=== PATIENT | female | born 1960 | race Caucasian/White ===

== ENCOUNTER → 2016-08-17 | Outpatient (CLI) | payer OTHER ==
[~2016-08-17] MED LIST: CARAFATE1 G PO; HYDROCODON-ACE1 EAC7 PO; OMEPRAZOLE40 M1 PO; SYNTHROID0.2 MG PO; TOPROL XL50 MG PO; VENLAFAXINE HCL75 M1 PO; ZOFRAN PO
--- NOTE | ~2016-08-17 | CT55 ---
[facility] A Service of [facility] RADIOLOGY TEXT RESULTS PATIENT: MARVA VILLATORO [facility] UNIT #: [id number] AGE: [address]: Yousuf Shafer MD SEX: F ORDER DR: [id number] [place], [place] [address] [id number] O MR#: [id number] Acc #: [id number] NAME: MARVA VILLATORO : 1960 SEX: F STUDY DATE/TIME: 08/17/2016 10:54 UNIT: [facility] ROOM: STUDY DESCRIPTION: CT Chest W Con Attending Physician: Yousuf Shafer M.D. Referring Physician: Yousuf Shafer M.D. Ordering Physician: Yousuf Shafer M.D. Primary Care Physician: Linda Muse M.D. MEDICAL IMAGING REPORT This report is preliminary unless electronic signature is present EXAM Chest CT with contrast 08/17/2016 INDICATIONS 55-year-old female with history of neoplasm. Colon cancer follow-up. Nausea, diarrhea 3 weeks. Status post chemotherapy. Cholecystectomy, colonic resection and oophorectomy. Observation for suspected malignant neoplasm. Active malignancy. TECHNIQUE Contrast enhanced CT of the chest was performed. This CT exam was performed with one or more of the following radiation dose reduction techniques: automatic exposure control, adjustment of mA and/or kV according to patient size, and iterative reconstruction. COMPARISON 09/16/[address] CHEST: Lungs are clear. No suspicious pulmonary nodule. No pleural or pericardial effusion. No axillary or mediastinal adenopathy. Included thyroid unremarkable. Aorta demonstrates no aneurysm or dissection. Included upper abdomen demonstrates surgical absence of the gallbladder. Osseous structures demonstrate no suspicious bone lesion. IMPRESSION 1. Negative contrast-enhanced CT of the chest. No findings to suggest metastatic disease. 2. Upper abdomen demonstrates no acute finding. Please see separately [facility] A Service [facility] RADIOLOGY TEXT RESULTS PATIENT: MARVA VILLATORO [facility] UNIT #: [id number] AGE: [address]: Yousuf Shafer MD SEX: F ORDER DR: dictated abdomen and pelvis CT same date for further details. Dictated by... Doc Kulkarni M.D. THIS IS AN ELECTRONICALLY VERIFIED REPORT Doc Kulkarni M.D. at 08/17/2016 5:32 PM CARLOS EDUARDO/david TD: 08/17/2016 17:10 JOB #: [id number] MEDICAL IMAGING REPORT Page 1 of 1 COPY
--- NOTE | ~2016-08-17 | CT2 ---
[facility] A Service of [facility] RADIOLOGY TEXT RESULTS PATIENT: MARVA VILLATORO LOCATION: [facility] : 60 UNIT #: [id number] AGE: [address]: Yousuf Shafer MD SEX: F ORDER DR: [id number] [facility] [address] [place], [place] [address] [id number] O MR#: [id number] Acc #: [id number] NAME: MARVA VILLATORO : 1960 SEX: F STUDY DATE/TIME: 08/17/2016 10:54 UNIT: [facility] ROOM: STUDY DESCRIPTION: CT Abd and Pelv W Cont Attending Physician: Yousuf Shafer M.D. Referring Physician: Yousuf Shafer M.D. Ordering Physician: Yousuf Shafer M.D. Primary Care Physician: Linda Muse M.D. MEDICAL IMAGING REPORT This report is preliminary unless electronic signature is present EXAM Abdomen and pelvis CT with contrast 08/17/2016 INDICATIONS 55-year-old female with history of colon cancer. Colonic resection, oophorectomy, cholecystectomy. Follow up. Nausea and diarrhea for 3 weeks. Observation for suspected malignant neoplasm and active malignancy. Status post chemotherapy in 2013. TECHNIQUE Contrast enhanced abdomen and pelvis CT was performed. This CT exam was performed with one or more of the following radiation dose reduction techniques: automatic exposure control, adjustment of mA and/or kV according to patient size, and iterative reconstruction. COMPARISON 09/16/[address] abdomen: Please see separately dictated chest CT same date for further details regarding chest findings. Included lung bases are clear. No pericardial or pleural effusion. Aorta demonstrates no aneurysm or dissection. The spleen and adrenal glands are unremarkable. The pancreas is unremarkable and the gallbladder is surgically absent. Probable mild fatty infiltration of the liver. Kidneys unremarkable. No adenopathy. CT pelvis: Bladder demonstrates a mildly thickened wall probably from incomplete distension and unchanged from the prior study. There is no free fluid or drainable fluid collection in the pelvis. No adnexal mass. The patient is status post sigmoid colonic resection and reanastomosis STS. [facility] A Service of [facility] RADIOLOGY TEXT RESULTS PATIENT: MARVA VILLATORO LOCATION: [facility] : 60 UNIT #: [id number] AGE: [address]: Yousuf Shafer MD SEX: F ORDER DR: procedure. The appendix is normal. There is a caliber change of the colon at the level of the mid to distal transverse colon with extension into the splenic flexure to the level of the sigmoid anastomosis. There is some mild wall thickening of this portion of the colon which could reflect a low grade inflammatory or infectious colitis given the provided history. No complicating features such as pneumatosis, free air or abscess or obstruction at this time. Inguinal canals are unremarkable. There is no new pelvic adenopathy. Osseous structures demonstrate spinal degenerative change most conspicuous at L4-5. No suspicious bone lesion or compression fracture. IMPRESSION 1. No new findings to suggest metastatic disease in the abdomen or pelvis. 2. There is a caliber change of the colon involving the mid to distal transverse colon extending in a contiguous fashion to the sigmoid colon. Imaging features are nonspecific but may reflect a low grade inflammatory or infectious colitis given the provided history. No complicating features otherwise as described. 3. The appendix is normal. Gallbladder surgically absent. 4. No new or suspicious bone lesion. Degenerative change in the lower lumbar spine. Dictated by... Doc Kulkarni M.D. THIS IS AN ELECTRONICALLY VERIFIED REPORT Doc Kulkarni M.D. at 08/17/2016 4:53 PM Erna TD: 08/17/2016 14:08 JOB #: [id number] MEDICAL IMAGING REPORT Page 1 of 1 COPY
[2016-08-17 16:31] LABS: POC - CREATININE 0.81 mg/dL (0.44-1.03); POC - GFR >60.0 mL/min (>60)
== END | disposition home or self-care (01) ==
LOC: CCAT 09:33
PROVIDERS: Internal Medicine Hematology & Oncology
DX: C18.7 Malignant neoplasm of sigmoid colon (principal); N63 Unspecified lump in breast; M47.816 Spondylosis without myelopathy or radiculopathy, lumbar region
CPT/HCPCS: 71260; 74177; 82565; Q9967